=== PATIENT | male | born 1965 | race Caucasian/White ===

== ENCOUNTER 2016-08-16 19:53 | Inpatient (IN) | payer OTHER ==
[2016-08-16 23:02] LABS: MAGNESIUM 2.7 mg/dl (1.7-2.5)
[2016-08-16 23:11] LABS: TROPONIN T 0.58 ng/ml (<0.01)
[2016-08-17 00:32] LABS: ABG CO2 ARTERIAL 18 mmol/L (21-27); ARTERIAL BLD GAS O2 SATURATION 91 % (95-98); ARTERIAL BLOOD GAS PCO2 33 mmHg (32-45); ARTERIAL PO2 69 mmHg (70-100); BICARBONATE 17 mmol/L (21-28); BLOOD GAS BASE EXCESS -7 mM/L (-/+3); PH 7.33 Units (7.35-7.45)
[2016-08-17] MEDS ORDERED: PRINIVIL20 M1 PO (01:50)
[2016-08-17] MEDS ORDERED: NEURONTIN600 M1 PO (01:50)
[2016-08-17] MEDS ORDERED: NORVASC10 M2 PO (01:50)
[2016-08-17] MEDS ORDERED: OMEPRAZOLE20 M4 PO (01:52)
[2016-08-17] MEDS ORDERED: MAXZIDE 37.5 M1 EAC1 PO (01:53)
[2016-08-17 04:42] LABS: ABG CO2 ARTERIAL 21 mmol/L (21-27); ARTERIAL BLD GAS O2 SATURATION 91 % (95-98); ARTERIAL PO2 72 mmHg (70-100); BICARBONATE 19 mmol/L (21-28); BLOOD GAS BASE EXCESS -6 mM/L (-/+3)
[2016-08-17 05:01] LABS: ARTERIAL BLOOD GAS PCO2 40 mmHg (32-45)
[2016-08-17 05:19] LABS: BASO % 0.2 % (0-2); EOS % 0.7 % (0-7); EOSINOPHIL ABSOLUTE COUNT 0.1 tho/cmm (0.0-0.7); HCT-HEMATOCRIT 44.9 % (36.0-53.5); HGB-HEMOGLOBIN 15.5 gm/dl (13.5-17.0); IMMATURE GRANULOCYTES ABSOLUTE 0.07 tho/cmm (0-0.03); IMMATURE GRANULOCYTES PERCENT 0.6 % (0-0.3); INR 1.1 INR (0.9-1.1); LYMPH % 9.6 % (20-45); MCH (MEAN CORPUSCULAR HGB) 34.4 pg (28.0-32.0); MCHC MEAN CORPUSCULAR HGB CONC 34.5 % (32.0-36.0); MCV (MEAN CELL VOLUME) 99.8 fl (82.0-96.0); MEAN PLATELET VOLUME 13.3 cmc (9.4-12.4); MONO % 3.8 % (0-12); MONOCYTE ABSOLUTE COUNT 0.4 tho/cmm (0.0-1.2); NEUTROPHIL ABSOLUTE COUNT 9.2 tho/cmm (1.6-8.0); NEUTROPHIL-AUTOMATED 9.2 tho/cmm (1.6-8.0); NEUTROPHILS % 85.1 % (40-80); PLATELET COUNT 94 tho/cmm (150-450); PROTHROMBIN TIME 13.1 SECONDS (9.0-13.6); RED CELL DISTRIBUTION WIDTH 13.3 % (12.4-16.4); WHITE BLOOD COUNT 10.8 tho/cmm (4.0-10.0)
[2016-08-17 05:27] LABS: ANION GAP 15 mmol/L (5-15); BLOOD UREA NITROGEN 55 mg/dl (6-25); CALCIUM 8.3 mg/dl (8.6-10.2); CARBON DIOXIDE-VENOUS 23 mmol/L (22-29); CHLORIDE 98 mmol/L (98-110); CREATININE 2.38 mg/dl (0.67-1.17); GLUCOSE 141 mg/dl (65-120); POTASSIUM 4.6 mmol/L (3.4-5.0); SODIUM 136 mmol/L (135-146); eGFR VALUE FOR BLACK 36 mL/Min
[2016-08-17] MEDS ORDERED: SERTRALINE HCL50 M4 PO (07:33)
[2016-08-17] MEDS ORDERED: OXYMORPHONE HCL PO (07:34)
[2016-08-17 11:30] LABS: TROPONIN T 0.22 ng/ml (<0.01)
[2016-08-18 04:01] LABS: BASO % 0.1 % (0-2); HCT-HEMATOCRIT 40.1 % (36.0-53.5); HGB-HEMOGLOBIN 13.6 gm/dl (13.5-17.0); IMMATURE GRANULOCYTES ABSOLUTE 0.05 tho/cmm (0-0.03); IMMATURE GRANULOCYTES PERCENT 0.4 % (0-0.3); LYMPH % 7.5 % (20-45); LYMPH ABSOLUTE COUNT 0.9 tho/cmm (0.8-4.5); MCH (MEAN CORPUSCULAR HGB) 33.8 pg (28.0-32.0); MCHC MEAN CORPUSCULAR HGB CONC 33.9 % (32.0-36.0); MCV (MEAN CELL VOLUME) 99.8 fl (82.0-96.0); MEAN PLATELET VOLUME 13.2 cmc (9.4-12.4); MONO % 7.2 % (0-12); MONOCYTE ABSOLUTE COUNT 0.9 tho/cmm (0.0-1.2); NEUTROPHIL ABSOLUTE COUNT 10.7 tho/cmm (1.6-8.0); NEUTROPHIL-AUTOMATED 10.7 tho/cmm (1.6-8.0); NEUTROPHILS % 84.8 % (40-80); PLATELET COUNT 87 tho/cmm (150-450); RED BLOOD COUNT 4.02 mil/cmm (4.40-5.70); RED CELL DISTRIBUTION WIDTH 13.1 % (12.4-16.4); WHITE BLOOD COUNT 12.6 tho/cmm (4.0-10.0)
[2016-08-18 04:11] LABS: ANION GAP 12 mmol/L (5-15); BLOOD UREA NITROGEN 33 mg/dl (6-25); CALCIUM 7.9 mg/dl (8.6-10.2); CARBON DIOXIDE-VENOUS 23 mmol/L (22-29); CHLORIDE 104 mmol/L (98-110); MAGNESIUM 2.3 mg/dl (1.7-2.5); POTASSIUM 4.2 mmol/L (3.4-5.0); SODIUM 139 mmol/L (135-146); eGFR VALUE FOR BLACK >60 mL/Min
[2016-08-18 04:18] LABS: CREATININE 1.39 mg/dl (0.67-1.17); GLUCOSE 227 mg/dl (65-120)
[2016-08-18 14:06] LABS: PF4 (HIT) ANTIBODY POSITIVE (NEGATIVE)
[2016-08-19 06:00] LABS: PLATELET COUNT 89 tho/cmm (150-450)
[2016-08-19 07:14] LABS: MAGNESIUM 1.9 mg/dl (1.7-2.5); POTASSIUM 4.1 mmol/L (3.4-5.0)
[2016-08-20 05:01] LABS: EOSINOPHIL ABSOLUTE COUNT 0.1 tho/cmm (0.0-0.7); HGB-HEMOGLOBIN 12.7 gm/dl (13.5-17.0); IMMATURE GRANULOCYTES PERCENT 0.8 % (0-0.3); MONOCYTE ABSOLUTE COUNT 0.9 tho/cmm (0.0-1.2); PLATELET COUNT 97 tho/cmm (150-450); RED CELL DISTRIBUTION WIDTH 13.9 % (12.4-16.4)
[2016-08-20 07:06] LABS: BASO % 0.1 % (0-2); EOS % 1.5 % (0-7); HCT-HEMATOCRIT 38.5 % (36.0-53.5); IMMATURE GRANULOCYTES ABSOLUTE 0.08 tho/cmm (0-0.03); LYMPH % 23.4 % (20-45); LYMPH ABSOLUTE COUNT 2.2 tho/cmm (0.8-4.5); MCV (MEAN CELL VOLUME) 103.2 fl (82.0-96.0); MEAN PLATELET VOLUME 13.2 cmc (9.4-12.4); MONO % 9.4 % (0-12); NEUTROPHIL ABSOLUTE COUNT 6.1 tho/cmm (1.6-8.0); NEUTROPHIL-AUTOMATED 6.1 tho/cmm (1.6-8.0); NEUTROPHILS % 64.8 % (40-80); RED BLOOD COUNT 3.73 mil/cmm (4.40-5.70); WHITE BLOOD COUNT 9.5 tho/cmm (4.0-10.0)
[2016-08-21 05:21] LABS: PLATELET COUNT 104 tho/cmm (150-450)
[2016-08-21] MEDS ORDERED: XARELTO20 M1 PO (11:02)
[2016-08-21] MEDS ORDERED: FOLIC ACID1 M1 PO (11:03)
[2016-08-21] MEDS ORDERED: THIAMINE HCL100 M2 PO (11:03)
[2016-08-21] MEDS ORDERED: NICOTINE PATCH1 EAC2 TD (11:09)
[2016-08-21] MEDS ORDERED: MULTI-VITAMIN-1 EACH PO (11:21)
== END 2016-08-21 13:37 | DRG 175 ==
LOC: PCUB 19:53 → CCU 08-17 00:10 → 5WF 08-18 18:04
PROVIDERS: Internal Medicine; Internal Medicine Pulmonary Disease; ADMIT Hospitalist
PROC: B246ZZZ Ultrasonography of Right and Left Heart (ICD-10-PCS; 2016-08-16)
PROC: B54DZZZ Ultrasonography of Bilateral Lower Extremity Veins (ICD-10-PCS; 2016-08-16)
PROC: 05H533Z Insertion of Infusion Device into Right Subclavian Vein, Percutaneous Approach (ICD-10-PCS; principal; 2016-08-17)
PROC: 3E03317 Introduction of Other Thrombolytic into Peripheral Vein, Percutaneous Approach (ICD-10-PCS; principal; 2016-08-17)
PROC: 5A09357 Assistance with Respiratory Ventilation, Less than 24 Consecutive Hours, Continuous Positive Airway Pressure (ICD-10-PCS; principal; 2016-08-17)
PROC: B246ZZZ Ultrasonography of Right and Left Heart (ICD-10-PCS; 2016-08-18)
PROC: 0DB68ZX Excision of Stomach, Via Natural or Artificial Opening Endoscopic, Diagnostic (ICD-10-PCS; 2016-08-19)
PROC: 0DBN8ZX Excision of Sigmoid Colon, Via Natural or Artificial Opening Endoscopic, Diagnostic (ICD-10-PCS; 2016-08-19)
DX: I26.99 Other pulmonary embolism without acute cor pulmonale (principal); J96.00 Acute respiratory failure, unspecified whether with hypoxia or hypercapnia; I27.2 Other secondary pulmonary hypertension; D69.6 Thrombocytopenia, unspecified; N17.9 Acute kidney failure, unspecified; J44.1 Chronic obstructive pulmonary disease with (acute) exacerbation; I13.10 Hypertensive heart and chronic kidney disease without heart failure, with stage 1 through stage 4 chronic kidney disease, or unspecified chronic kidney disease; N18.3 Chronic kidney disease, stage 3 (moderate); I82.409 Acute embolism and thrombosis of unspecified deep veins of unspecified lower extremity; Z68.41 Body mass index [BMI] 40.0-44.9, adult; I82.433 Acute embolism and thrombosis of popliteal vein, bilateral; K92.1 Melena; G47.33 Obstructive sleep apnea (adult) (pediatric); G62.9 Polyneuropathy, unspecified; E66.9 Obesity, unspecified; F10.10 Alcohol abuse, uncomplicated; F32.9 Major depressive disorder, single episode, unspecified; D72.829 Elevated white blood cell count, unspecified; D12.5 Benign neoplasm of sigmoid colon; Z23 Encounter for immunization; F17.210 Nicotine dependence, cigarettes, uncomplicated; M41.9 Scoliosis, unspecified; K21.9 Gastro-esophageal reflux disease without esophagitis; J98.01 Acute bronchospasm; M54.9 Dorsalgia, unspecified; Z79.891 Long term (current) use of opiate analgesic; B18.2 Chronic viral hepatitis C
CPT/HCPCS: G0009; J1644; J2930; J2997; J3010; J7030; J7040